=== PATIENT | male | born 1990 ===

== ENCOUNTER 2017-03-09 01:22 | Observation (INO) | payer SELFPAY ==
--- NOTE | 2017-03-09 01:28 | ED PDOC ---
HPI: Psych/Substance Abuse Time Seen by Provider: 03/09/17 01:27 Chief Complaint (Provider): etoh History Per: Patient, EMS Additional Complaint(s): 26 year old male presents to ED for acute etoh intoxication. Patient was noted to be intoxicated in public and police were called. He vomited on the way to ED as per EMS. Patient denies any drug use. Past Medical History Reviewed: Historical Data, Nursing Documentation, Vital Signs - Medical History PMH: No Chronic Diseases - Surgical History Surgical History: No Surg Hx - Family History Family History: States: No Known Family Hx - Living Arrangements Living Arrangements: With Family - Social History Current smoker - smoking cessation education provided: No Alcohol: Social Drugs: Denies - Allergies Allergies/Adverse Reactions: Allergies Allergy/AdvReac Type Severity Reaction Status Date / Time No Known Allergies Allergy Verified 03/09/17 01:30 Review of Systems ROS Statement: Except As Marked, All Systems Reviewed And Found Negative Gastrointestinal: Positive for: Nausea, Vomiting Psych: Positive for: Other (etoh) Physical Exam - Reviewed Nursing Documentation Reviewed: Yes Vital Signs Reviewed: Yes - Physical Exam Appears: Positive for: Well, Non-toxic, No Acute Distress Skin: Negative for: Rash Eye Exam: Positive for: Normal appearance, EOMI, PERRL Cardiovascular/Chest: Positive for: Regular Rate, Rhythm Respiratory: Positive for: Normal Breath Sounds Gastrointestinal/Abdominal: Positive for: Soft. Negative for: Tenderness, Distended, Guarding Neurologic/Psych: Positive for: Alert, Other (intoxicated, arousable) - ECG O2 Sat by Pulse Oximetry: 99 Pulse Ox Interpretation: Normal Medical Decision Making Medical Decision Makin26 year old intoxicated male Plan: BAl Glucose POC IM zofran ED observation. ED OBSERVATION Date of observation admission: 03/09/17 Time of observation admission: 01:30 - Observation admission statement Patient is being placed in observation because:: Acute etoh intoxication - Goals of Observation Goals of observation are:: Monitor vital signs and monitor for airway compromise while acutely intoxicated pending sobriety and final disposition - Progress Note Progress Note: 03/09/17 04:12 Alcohol is 225. Patient is asleep, arousable, vital signs stable. 03/09/17 05:09 Patient is awake, alert, has steady gait, stable for discharge. Disposition - Clinical Impression Clinical Impression: Alcohol intoxication - Patient ED Disposition Is Patient to be Admitted: No - Disposition Disposition Time: 05:09 Condition: STABLE
[2017-03-09 05:45] VITALS: BP 117/73; PULSE 66; RESP 16; TEMP 98.6; O2SAT 100
== END 2017-03-09 05:10 | disposition home or self-care (01) ==
LOC: H.ER 01:22 → H.EROBSV 01:45
PROVIDERS: ADMIT Emergency Medicine; ATTEND Emergency Medicine
DX: F10.129 Alcohol abuse with intoxication, unspecified (principal); Y90.7 Blood alcohol level of 200-239 mg/100 ml
CPT/HCPCS: 82948; 96372; 99283; G0378; G0480; J2405